=== PATIENT | male | born 1990 | race Caucasian/White ===

== ENCOUNTER 2018-01-26 09:07 | Emergency (ER) | payer OTHER ==
[~2018-01-26] VITALS: Ht 172.7 cm; Wt 63.5 kg
[~2018-01-26 09:07] MED LIST: CLEOCIN HCL150 MG PO; NAPROSYN500 MG PO
[2018-01-26] MEDS ORDERED: ERYTHROMYCIN E3.5 G3 OPHTHALMIC (09:28)
[2018-01-26 09:36] VITALS: BP 103/57
== END 2018-01-26 09:42 | disposition home or self-care (01) ==
LOC: M.ERS 09:07
DX: T15.01XA Foreign body in cornea, right eye, initial encounter (principal); X58.XXXA Exposure to other specified factors, initial encounter; Y93.89 Activity, other specified; Y92.89 Other specified places as the place of occurrence of the external cause; Y99.8 Other external cause status